=== PATIENT | male | born 1990 | race Hispanic/Latino ===

== ENCOUNTER 2024-11-08 13:35 | Inpatient (IN) | payer SELFPAY ==
[~2024-11-08] VITALS: Ht 162.6 cm; Wt 158.6 kg
[2024-11-08 15:40] LABS: BASOPHILS # (AUTO) 0.07 K/uL (0.00-0.20); BASOPHILS % (AUTO) 0.6 % (0.0-5.0); EOSINOPHILS % (AUTO) 5.4 % (0.0-8.0); HEMATOCRIT 35.8 % (42-54); IMMATURE GRANULOCYTE ABSOLUTE 0.09 K/uL (0-1); LYMPHOCYTES # (AUTO) 2.3 K/uL (1.0-4.8); LYMPHOCYTES % (AUTO) 20.6 % (21.0-51.0); MEAN CORPUSCULAR HGB CONC 31.8 g/dL (32.0-36.0); MEAN CORPUSCULAR VOLUME 81.7 fL (79-99); MONOCYTES # (AUTO) 0.6 K/uL (0.1-1.0); MONOCYTES % (AUTO) 5.2 % (3.0-13.0); NEUTROPHILS # (AUTO) 7.4 K/uL (1.8-7.7); NEUTROPHILS % (AUTO) 67.4 % (40.0-77.0); PLATELET COUNT (AUTO) 357 K/uL (130-400); RED BLOOD CELL COUNT(AUTO) 4.38 MIL/uL (4.50-6.20); RED CELL DISTRIBUTION WIDTH 14.6 % (11.0-15.5)
[2024-11-08 15:57] LABS: CREATININE 1.9 mg/dL (0.5-1.3)
[2024-11-08 16:05] LABS: POTASSIUM 2.9 mmol/L (3.5-5.1)
[2024-11-08] MEDS ORDERED: IOHEXOL 350 MG/ML 100ML INFUS..BTL IV ONE (16:25)
--- NOTE | 2024-11-08 16:50 | HMCIMG ---
Exam Type: CT ABDOMEN/PELVIS W/CONTRAST Clinical Information: r/o incarcerated left inguinal hernia Comparison: None Contrast: 100 cc's Isovue 370 IV, no complications or adverse reactions CT Dose Index (CTDI): 31.60 mGy Dose Length Product (DLP): 1740.80 total mGy-cm Findings: There is a left inguinal hernia containing parts of the sigmoid colon. In addition, it contains 2 fluid collections, measuring 19 x 10 and 14 x 11 cm, possibly peritoneal fluid and a hydrocele. There is also evidence that the inguinal hernia contains the distal portion of the left ureter which appears dilated, with resultant left moderate hydroureteronephrosis. No evidence of right nephro or ureterolithiasis is found. No right hydronephrosis or ureteral dilatation is seen. The lung bases are clear. The stomach is unremarkable. It shows no wall thickening. No gross ulceration is seen. It is not overly distended. There are no surrounding inflammatory changes. No wall lesions are identified to suggest cancer. The spleen is unremarkable. It is not enlarged. The pancreas shows normal anatomy. It is not fatty replaced. It shows no lesions. The pancreatic duct is not dilated. The gallbladder is unremarkable. It shows no cholelithiasis. The gallbladder wall is normal in thickness. There is no pericholecystic fluid. The is no acute or chronic inflammation noted. The adrenal glands are unremarkable. There is no enlargement. No lesions are noted. The liver is unremarkable. It shows no focal masses. The appendix is unremarkable. It shows no evidence of inflammation. No appendicolith is seen. The small bowel is unremarkable. There is no evidence of dilatation to suggest obstruction. No evidence of adynamic ileus is seen. There is no small bowel wall thickening to suggest enteritis. The colon is unremarkable. The urinary bladder is unremarkable. There is no wall thickening to suggest tumor or inflammation. There are no intraluminal calculi. There are no diverticula. There is no evidence of chronic bladder outlet obstruction. There is no evidence of urinary bladder distention to suggest urinary retention. The other pelvic structures are unremarkable. The bony and vascular structures are unremarkable for the patient's age. IMPRESSION: There is a left inguinal hernia containing parts of the sigmoid colon. In addition, it contains 2 fluid collections, measuring 19 x 10 and 14 x 11 cm, possibly peritoneal fluid and a hydrocele. There is also evidence that the inguinal hernia contains the distal portion of the left ureter which appears dilated, with resultant left moderate hydroureteronephrosis. This study was performed using dose reduction techniques to include automated exposure control and/or adjustment of the mA and/or kV according to patient size.
[2024-11-08] MEDS: 0.9%NACL 1000ML 1,000 ML IV ONE (17:43)
[2024-11-08] MEDS: PoTASSium BIcarbonate/CIT AC 25 MEQ TABLET.EFF PO ONE (17:43)
[2024-11-08] MEDS: LAbetaLOL 20MG SYG IV ONE (17:45)
--- NOTE | 2024-11-08 17:53 | ERN ---
General Chief Complaint: Hypertension Stated Complaint: HYPERTENSION Time Seen by MD: 13:44 Time Seen by Midlevel: 13:44 Source: patient History of Present Illness Initial Comments Patient is a morbidly obese 34-year-old male who presents to the emergency department with multiple complaints. Primary concern is that patient was having left groin pain that has progressively worsening over the last couple of weeks. Patient was seen at a local urgent care one month ago where he was diagnosed with a left inguinal hernia. Today he states his pain worsened so he was seen at [facility] but discharged. Patient states that while he was there his blood pressure was elevated over 190 systolic but was still discharged like that. Here he was reporting a significant amount of pain to his left groin along with high blood pressure. Patient has been noncompliant with his high blood pressure medication. Allergies: Coded Allergies: No Known Allergies (Unverified Allergy, Unknown, 11/08/24) Past Medical History Past Medical History: Hypertension Past Surgical History: Other ROS Dictation CONSTITUTIONAL: Negative except for HPI HEAD/FACE: Negative except for HPI EENT: Negative except for HPI RESPIRATORY: Negative except for HPI GASTROINTESTINAL/ABDOMINAL: Negative except for HPI GENITOURINARY: Negative except for HPI MUSCULOSKELETAL: Negative except for HPI INTEGUMENTARY: Negative except for HPI NEUROLOGICAL/PSYCH: Negative except for HPI HEMATOLOGIC/LYMPHATIC: Negative except for HPI All Systems Negative, Except as noted above. 13 point review of systems assessed and all negative except for above. Physical Exam Physical Exam Dictation Vital Signs reviewed General Appearance: Alert, oriented x 3, no acute distress, morbidly obese Head and Face: non-traumatic. Eyes: PERRL, pink conjunctivas, eyelid no trauma, anterior chamber with arcus senilis. Ears: Pinnas intact and no signs of trauma or erythema ear canals clear and no discharge TM no erythema Nose: No discharge, no bleeding. Oropharynx: Mouth normal, tongue pink, pharynx clear,no erythema, tonsils no exudates, no abscesses noted, mucous membrane moist Neck: Supple, non-tender, no thyromegaly, no masses, no JVD, no bruits Breast:Deferred Chest:No tenderness, no crepitus, no paradoxical movement, no retractions Lungs:Clear, well-ventilated, symmetric, no rales, no wheezing, no rhonchi, no stridor, good breath sounds bilaterally Heart: Regular rate, regular rhythm, no murmur, no gallops Vascular: no peripheral edema, Abdomen: Soft, positive bowel sounds, nondistended, no guarding, nontender, no rebound, no masses no hepatomegaly, no splenomegaly, no Dixon's sign, no hernias. Rectal: Deferred Genital: Deferred Neurological: Normal speech, motor function intact, sensory function intact Musculoskeletal: Neck nontender, full range of motion, back nontender, full range of motion, Extremities: nontender, full range of motion Skin: Color pink, dry, no turgor, no rash, no lacerations, no abrasions, no contusions. Lymphatic: Deferred Results Laboratory and Microbiology Lab and Micro Result Labs Reviewed?: Yes MDM MDM: Differential diagnosis: Incarcerated hernia, urinary tract infection, hydrocele, Rationale: Tests considered and ordered secondary to shared decision making include: Previous outside records reviewed: Old ER visits. Risk of complication and/or morbidity or mortality of patient management: None Medications-Per medication reconciliation Need for hospitalization: Patient does meet criteria for hospitalization. Need for emergency major/minor surgery: No There are no social concerns with this patient. Prescription drug management Prescriptions will include symptomatic care Patient's prior external medical records from other ER visits were reviewed by me as indicated. Prior testing and results from previous visits were reviewed. Prior tests were taken into account with medical decision making and resource utilization, independent historian/historians were used to obtain complete medical history. I independently interpreted the test that were performed, results were reviewed by me and considered findings on radiology if ordered. Medical management and examination interpretation discussions were had by me with other qualified healthcare professionals as indicated for the patient's care. ED Course [place] [id number] [place] [id number] IMAGING REPORT Signed PATIENT: SHERIF ANTONIO JR MR#: [id number] : 1990 SEX: M AGE: 34 LOCATION: [facility] ORDER 17 STATUS: [facility] REPORT#: [id number] SERVICE 15 REASON: r/o incarcerated left inguinal hernia ORDERING PHYSICIAN: CONCEPCION GRUBER PROCEDURE: ABD PEL W - CT ABDOMEN/PELVIS W/CONTRAST Exam Type: CT ABDOMEN/PELVIS W/CONTRAST Clinical Information: r/o incarcerated left inguinal hernia Comparison: None Contrast: 100 cc's Isovue 370 IV, no complications or adverse reactions CT Dose Index (CTDI): 31.60 mGy Dose Length Product (DLP): 1740.80 total mGy-cm Findings: There is a left inguinal hernia containing parts of the sigmoid colon. In addition, it contains 2 fluid collections, measuring 19 x 10 and 14 x 11 cm, possibly peritoneal fluid and a hydrocele. There is also evidence that the inguinal hernia contains the distal portion of the left ureter which appears dilated, with resultant left moderate hydroureteronephrosis. No evidence of right nephro or ureterolithiasis is found. No right hydronephrosis or ureteral dilatation is seen. The lung bases are clear. The stomach is unremarkable. It shows no wall thickening. No gross ulceration is seen. It is not overly distended. There are no surrounding inflammatory changes. No wall lesions are identified to suggest cancer. The spleen is unremarkable. It is not enlarged. The pancreas shows normal anatomy. It is not fatty replaced. It shows no lesions. The pancreatic duct is not dilated. The gallbladder is unremarkable. It shows no cholelithiasis. The gallbladder wall is normal in thickness. There is no pericholecystic fluid. The is no acute or chronic inflammation noted. The adrenal glands are unremarkable. There is no enlargement. No lesions are noted. The liver is unremarkable. It shows no focal masses. The appendix is unremarkable. It shows no evidence of inflammation. No appendicolith is seen. The small bowel is unremarkable. There is no evidence of dilatation to suggest obstruction. No evidence of adynamic ileus is seen. There is no small bowel wall thickening to suggest enteritis. The colon is unremarkable. The urinary bladder is unremarkable. There is no wall thickening to suggest tumor or inflammation. There are no intraluminal calculi. There are no diverticula. There is no evidence of chronic bladder outlet obstruction. There is no evidence of urinary bladder distention to suggest urinary retention. The other pelvic structures are unremarkable. The bony and vascular structures are unremarkable for the patient's age. IMPRESSION: There is a left inguinal hernia containing parts of the sigmoid colon. In addition, it contains 2 fluid collections, measuring 19 x 10 and 14 x 11 cm, possibly peritoneal fluid and a hydrocele. There is also evidence that the inguinal hernia contains the distal portion of the left ureter which appears dilated, with resultant left moderate hydroureteronephrosis. This study was performed using dose reduction techniques to include automated exposure control and/or adjustment of the mA and/or kV according to patient size. DICTATED BY: ISAIAS BRUNER MD DATE: 11/08/24 1646 ELECTRONICALLY SIGNED BY: ISAIAS BRUNER MD DATE: 11/08/24 165 Case discussed with general surgery Dr. Nielsen who agrees to be put on consult for this case. DX & DISP Disposition: Inpatient Decision to Admit Date: Nov 08, 2024 Departure Impression: Primary Impression: Left inguinal hernia Additional Impressions: KARY (acute kidney injury), Hypokalemia, Hydroureteronephrosis Condition: Stable Referrals: SVITLANA PICHARDO MD (PCP) Time of Disposition: 18:11 I have reviewed the case, and I agree with, Diagnosis and Plan I performed the substantive portion of the visit. I have reviewed and personally made and approve the management plan that is documented in the note by myself or the JEIMY. I acknowledge for responsibility for the patient's ma nagement plan. CONCEPCION GRUBER Nov 08, 2024 17:53 DESEAN JACOBS DO Nov 09, 2024 07:15
[2024-11-08 17:58] LABS: APPEARANCE,URINE CLEAR (CLEAR); BILIRUBIN,URINE NEGATIVE (NEGATIVE); COLOR,URINE YELLOW (YELLOW); GLUCOSE, URINE (UA) NEGATIVE (NEGATIVE); KETONES,URINE NEGATIVE (NEGATIVE); LEUKOCYTE ESTERASE ,URINE NEGATIVE Leu/uL (NEGATIVE); NITRATE,URINE NEGATIVE (NEGATIVE); OCCULT BLOOD,URINE LARGE (NEGATIVE); PH,URINE 6.5 (5.0-8.0); PROTEIN,URINE 300 mg/dL (NEGATIVE); UROBILINOGEN,URINE 0.2 mg/dL (0.2-1.0)
[2024-11-08 18:00] LABS: ADD UA MICROSCOPIC YES
[2024-11-08 18:25] LABS: BACTERIA,URINE RARE /HPF (None Seen); MUCUS,URINE RARE LPF (None Seen); RBC,URINE 26-50 /HPF (0-1); SQUAMOUS EPITHELIAL CELL,UR RARE /HPF (0-2)
--- NOTE | 2024-11-08 18:25 | HP ---
History of Present Illness Reason for Visit: abdominal pain History of Present Illness Mr. Lazo is a 34-year-old male that was seen and examined today on 11/08/2024. Patient is a good historian and personal health. Patient states that he came to the emergency department with a chief complaint of abdominal pain. Onset was 4:00 a.m.. Location is to left lower quadrant. Duration is on and off. Character is described as burning. There was no alleviating factors. Symptoms are aggravated with movement. Patient reports an associated hernia that he has had for the last one year. Today in the emergency department CBC is unremarkable, potassium is 2.9, carbon dioxide 34, BUN 19, creatinine 1.9, GFR 47, urinalysis is unremarkable CT abdomen and pelvis shows There is a left inguinal hernia containing parts of the sigmoid colon. in addition, it contains 2 fluid collections, measuring 19 x 10 and 14 x 11 cm, possibly peritoneal fluid and a hydrocele. There is also evidence that the inguinal hernia contains the distal portion of the left ureter which appears dilated, with resultant left moderate hydroureteronephrosis. Past Medical History ADDITIONAL PAST MEDICAL HISTORY: [Hypertension, obstructive sleep apnea] SOCIAL HISTORY: Negative for smoking, alcohol use, drug use. Patient lives with a sister faustino gordon. Patient has poor access to health care due to lack of health insurance. Patient is currently unemployed. Patient denies difficulty pain is bills. Patient is typically independent of all his ADLs.] SURGICAL HISTORY: [No surgery, right ankle surgery] Review of Systems General: No Fever, No Chills, No Night Sweats, No Fatigue, No Malaise, No Appetite, No Other HEENT: No Head Aches, No Visual Changes, No Eye Pain, No Ear Pain, No Dysphasia, No Sinus Congestion, No Post Nasal Drip, No Sore Throat, No Other Pulmonary: No Dyspnea, No Cough, No Pleuritic Chest Pain, No Other Cardiovascular: No: Chest Pain, Palpitations, Orthopnea, Paroxysmal Noc. Dyspnea, Edema, Lt Headedness, Other Gastrointestinal: Abdominal Pain; No: Nausea, Vomiting, Diarrhea, Constipation, Melena, Hematochezia, Other Genitourinary: No Dysuria, No Frequency, No Incontinence, No Hematuria, No Retention, No Other Musculoskeletal: No: other, neck pain, shoulder pain, arm pain, back pain, hand pain, leg pain, foot pain Skin: No Urticaria, No Rash, No Other Neurological: No: Weakness, Numbness, Incoordination, Change in speech, Confusion, Seizures, Other Allergies: Coded Allergies: No Known Allergies (Unverified Allergy, Unknown, 11/08/24) Exam Vital Signs Vital Signs Date Time Temp Pulse Resp B/P (MAP) Pulse Ox O2 Delivery O2 Flow Rate FiO2 11/08/24 17:45 220/115 11/08/24 14:05 98.1 93 20 99 Room Air General Appearance: Alert, Oriented X3, Cooperative, mild distress HEENT: Atraumatic, PERRLA, EOMI Respiratory: Clear to auscultation, Normal air movement, NL respiratory effort Cardiovascular: Regular rate, Regular rhythm, Normal S1, Normal S2 Abdominal: Normal bowel sounds, Soft, No tenderness, Other (Protruding hernia left inguinal area) Extremities: No edema Skin: No significant lesion Neuro: Normal speech, Strength at 5/5 X4 ext, Sensation intact, Cranial nerves 3-12 NL Psych/Mental Status: Mental status NL, Thoughts/Content NL Assessment/Plan ASSESSMENT: [] Left inguinal hernia causing hydroureteronephrosis, POA Acute kidney injury, POA Hypokalemia, POA PLAN: [ ] Admit patient to medical floor as inpatient status. Patient will be followed by General surgery Service, Dr. Nielsen IV fluid maintenance therapy lactated Ringer's at 75 mL/HR Keep patient NPO Check preprocedure labs, CBC, BMP, magnesium, phosphorus, PTT, UA, type and screen, EKG, CXR As needed analgesia with morphine Consider consulting Urology Service if recommended by General surgery Service Calculate FENA Check urine sodium, creatinine, osmolality Avoid nephrotoxic agents when possible Renally dose all medications when possible Consider consulting urology service if any worsening renal function or evidence of ATN. Monitor patient's labs. Weight patient daily. Monitor intake and output. Patient received potassium replacement 25 mEq in the emergency department. Replace potassium conservatively given current acute kidney injury. GI prophylaxis, Protonix DVT prophylaxis, Artemio's and SCDs. Avoid anticoagulation at this time due to impending general surgery evaluation. ADVANCED CARE PLANNING 1. Which of the following were discussed? Hospice Care - Yes Therapeutic options - Yes Advance Directives - Yes- patient states he does not have any advance directives in place at this time, however his sister can make decisions for him if he becomes unable. Other discussions - patient wishes to remain a full code at this time 2. Discussed with who? Patient 3. Voluntary nature of this service was explained to the patient? Yes 4. Amount of time spent - __ 16 minutes 5. Reviewed by Physician? (if this service was performed by NPP) Yes This document was generated in part using voice recognition software, occasional wrong word or sound alike substitutions may have occurred due to the inherent limitations of voice recognition software. Read the chart carefully and recognize using context, where the substitutions have occurred. Although every effort was made to edit the content, aircraft log clerk and typing errors may occur ATTESTATION BY PHYSICIAN I have seen and examined the patient. I reviewed the documentation, medical decision making, and treatment plan as noted by the mid-level provider above. I agree with the findings and plan of care. SELAM ALTAMIRANO [facility] Nov 08, 2024 18:25
[2024-11-08] MEDS ORDERED: ondanSETRON 4MG INJ IV PRN (18:30)
[2024-11-08] MEDS ORDERED: acetaMINOPHEN 650 MG SUPPOSITORY RC PRN (18:30)
[2024-11-08] MEDS ORDERED: morPHINE 4 MG SYG IVP PRN (18:30)
[2024-11-08] MEDS: LACTATED RINGERS 1000ML 1,000 ML IV SCH (21:16)
[2024-11-08 21:28] LABS: CREATININE,URINE RANDOM 251.26 mg/dL (30-135)
--- NOTE | 2024-11-08 21:30 | HMCIMG ---
Exam Type: CHEST 1VW Clinical Information: pre procedural Comparison: None Findings: The lungs are clear. The heart is normal in size. There is tortuosity of the aorta which artifactually enlarges the mediastinum. No actual mediastinal pathology is detected. IMPRESSION: Tortuous aorta. Clear lungs.
--- NOTE | 2024-11-08 22:16 | NUR ---
ASSUMED PT CARE
--- NOTE | 2024-11-08 23:00 | NUR ---
HOLD TRANSFER BP 190 SYSTOLIC
[2024-11-09] MEDS: hydrALAZine 20MG/ML VIAL IV PRN (00:09)
--- NOTE | 2024-11-09 00:16 | NUR ---
PT NOT ON ANY HOME MEDS
--- NOTE | 2024-11-09 01:04 | NUR ---
FINANCE ADVISOR SELAM ALTAMIRANO NOTIFIED OF BLOOD PRESSURE PRIOR TO PATIENT GOING TO FLOOR; ORDERS RECIEVED AND TRANSCRIBED.
[2024-11-09] MEDS: NITROGLYCERIN 1GM OINT 1 INCH/1GM TD ONE ×2 (01:08→01:14)
--- NOTE | 2024-11-09 01:25 | NUR ---
FLOOR NURSES NOT HAPPY TO RECEIEVE PT WITH BP OF 179 SYSTOLIC, PAGED SELAM VILLEGAS, AWAITS CALL BACK
--- NOTE | 2024-11-09 01:39 | NUR ---
REPEATED BP 156/116 CALLED FLR NURSE TIM, STILL NOT HAPPY TO TAKE THE PT WITH HIGH MAPS, INFORMED SELAM VILLEGAS ABOUT RECENT BP - AWARE, 'NOTHING TO DO ON HIS END LONG PT BP IS BELOW 160 SYSTOLIC'
--- NOTE | 2024-11-09 07:02 | EKG ---
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
[2024-11-09 07:28] LABS: BASOPHILS # (AUTO) 0.04 K/uL (0.00-0.20); BASOPHILS % (AUTO) 0.4 % (0.0-5.0); EOSINOPHILS # (AUTO) 0.39 K/uL (0.00-0.70); EOSINOPHILS % (AUTO) 4.2 % (0.0-8.0); HEMATOCRIT 33.3 % (42-54); IMMATURE GRANULOCYTE ABSOLUTE 0.07 K/uL (0-1); LYMPHOCYTES # (AUTO) 1.6 K/uL (1.0-4.8); LYMPHOCYTES % (AUTO) 17.1 % (21.0-51.0); MEAN CORPUSCULAR HEMOGLOBIN 25.4 pg (27.0-33.0); MEAN CORPUSCULAR HGB CONC 31.2 g/dL (32.0-36.0); MEAN CORPUSCULAR VOLUME 81.2 fL (79-99); MONOCYTES # (AUTO) 0.5 K/uL (0.1-1.0); MONOCYTES % (AUTO) 5.4 % (3.0-13.0); NEUTROPHILS # (AUTO) 6.7 K/uL (1.8-7.7); NEUTROPHILS % (AUTO) 72.2 % (40.0-77.0); PLATELET COUNT (AUTO) 342 K/uL (130-400); RED CELL DISTRIBUTION WIDTH 14.9 % (11.0-15.5); WHITE BLOOD COUNT (AUTO) 9.3 K/uL (4.8-10.8)
[2024-11-09 07:36] LABS: INR 1.05 (0.85-1.15); PROTHROMBIN TIME 11.7 SEC (9.6-11.6)
[2024-11-09 07:37] LABS: PARTIAL THROMBOPLASTIN TIME 31.9 SEC (26.3-35.5)
[2024-11-09 07:41] LABS: CREATININE 1.6 mg/dL (0.5-1.3); MAGNESIUM 1.9 mg/dL (1.80-2.40)
--- NOTE | 2024-11-09 07:46 | NUR ---
PROVIDER PAGED. PATIENT BP ELEVATED (SEE VITALS SHEET).
[2024-11-09 07:58] LABS: POTASSIUM 2.9 mmol/L (3.5-5.1)
[2024-11-09] MEDS: PANTOPrazole 40 MG/VIAL IVP SCH (08:26)
[2024-11-09] MEDS: PoTASSium chloRIDE 20MEQ/100ML 100 ML IV PRN (08:27)
[2024-11-09] MEDS ORDERED: NACL 0.9% IV SCH (08:30)
[2024-11-09] MEDS ORDERED: LABETALOL IV SCH (08:30)
[2024-11-09] MEDS: LAbetaLOL 20MG SYG IV ONE (08:53)
--- NOTE | 2024-11-09 10:40 | NUR ---
DCP: HOME with sister Pt unemployed, lost insurance. Lives in [facility] with sister [place] [address] [address]. Pt states he is able to complete ADLS on his own. Uses no DME or in home care services. No HH or HD. PCP is Bridget Tineo and uses Dariela in [place] for rx. Family transports as needed. Community resources given. Pt to dc home with sister. Addendum: 11/09/24 at 1043 by LIBERTAD ARNOLD SS Amended: Links added.
--- NOTE | 2024-11-09 11:17 | NUR ---
ATTEMPT TO CALL REPORT X2
[2024-11-09 11:35] VITALS: BP 179/91; PULSE 98; RESP 19; TEMP 97.8
[2024-11-09 11:45] VITALS: O2SAT 95
--- NOTE | 2024-11-09 13:08 | PN ---
[facility] PROGRESS NOTE Date of Service: Nov 09, 2024 Time of Service: 13:08 SUBJECTIVE: Mr. Lazo is a 34-year-old male that was seen and examined today on 11/08/2024. Patient is a good historian and personal health. Patient states that he came to the emergency department with a chief complaint of abdominal pain. Onset was 4:00 a.m.. Location is to left lower quadrant. Duration is on and off. Character is described as burning. There was no alleviating factors. Symptoms are aggravated with movement. Patient reports an associated hernia that he has had for the last one year. Today in the emergency department CBC is unremarkable, potassium is 2.9, carbon dioxide 34, BUN 19, creatinine 1.9, GFR 47, urinalysis is unremarkable CT abdomen and pelvis shows There is a left inguinal hernia containing parts of the sigmoid colon. in addition, it contains 2 fluid collections, measuring 19 x 10 and 14 x 11 cm, possibly peritoneal fluid and a hydrocele. There is also evidence that the inguinal hernia contains the distal portion of the left ureter which appears dilated, with resultant left moderate hydroureteronephrosis. 11/09/24 Patient was seen and examined at bedside. He is awake, alert and oriented. He complains of generalized left lower abdominal pain, denies nausea or vomitings or diarrhea or chest pain or shortness of breath or palpitations. Patient has been hypertensive in 170s to 200 , and gave him labetalol and hydralazine. We will start hydralazine 10 mg q.6 and if blood pressure does not go down we will start him on Norvasc5 mg. We will get a ultrasound to rule out renal artery stenosis and 2D echo. He has history of hypertension but was never on medication. Pending Dr. Nielsen recommendations, patient is currently NPO. REVIEW OF SYSTEMS CONSTITUTIONAL: Denies fevers, chills, or night sweats. No unintentional weight loss reported. NEUROLOGICAL: Denies headache, amaurosis fugax, motor weakness, sensory deficit, vertigo/spinning sensation, gait abnormalities, or tremors. ENT: No hearing loss, otalgia, otorrhea, rhinitis, rhinorrhea, hoarseness, or sore throat. CARDIOVASCULAR: Denies any exertional angina, dyspnea on exertion, orthopnea, paroxysmal nocturnal dyspnea, palpitations, life-threatening arrhythmias, claudication. PULMONARY: Denies any shortness of breath, cough, phlegm/sputum, hemoptysis, pleuritic chest pain. SLEEP: Denies morning headaches, daytime somnolence or napping. Denies difficulty falling asleep, staying asleep, waking from sleep. Denies knowledge of snoring. GASTROINTESTINAL: Denies any type of dysphagia to either liquids or solids. Denies nausea, vomiting, pyrosis, early satiety, abdominal pain, diarrhea, constipation, or changes in stool consistency or caliber. Denies coffee-ground emesis, hematemesis, hematochezia, or melanotic stools. GENITOURINARY: Denies frequency, urgency, nocturia, hematuria or incontinence (Storage/Irritative symptoms.) Low urinary stream, straining to void, urinary intermittency or hesitancy, splitting of the voiding stream, terminal dribbling. ENDOCRINOLOGIC: Denies polyuria, polydipsia, polyphagia or heat/cold intolerances. HEMATOLOGIC: Denies thrombophilia/previous clots, or coagulopathy/bleeding disorders. ONCOLOGIC: Denies personal history of malignancy. DERMATOLOGIC: Denies rashes or pruritus. PSYCHIATRIC: Denies any suicidal or homicidal ideation. Denies hallucinations. PHYSICAL EXAM GENERAL APPEARANCE: The patient is awake, alert, and oriented, in no acute cardiopulmonary distress. NEUROLOGICAL: Cranial nerves II-XII grossly intact. Motor is 5/5 in bilateral upper and lower extremities proximal to distal. No sensory deficits. HEENT: Face is symmetric. Pupils are equal and reactive. Extraocular movements are intact. NECK: Supple. No JVD. No thyromegaly. No submental, submandibular, pre- /postauricular, occipital or supraclavicular lymphadenopathy. CHEST: Normal chest expansion. No Telemetry. LUNGS: Absence of any rales, rhonchi or any wheezing. CARDIOVASCULAR: Regular. S1 and S2 normal. No appreciable rubs, murmurs or gallops. ABDOMEN: Soft, nontender, and nondistended. There is no rebound, voluntary guarding, or rigidity. : Deferred. No Munoz. EXTREMITIES: Non-edematous and not cyanotic. No clubbing. Good capillary refill. SKIN: No skin breakdown. Vital Signs (last 8hr) Date Time Temp Pulse Resp B/P (MAP) Pulse Ox O2 Delivery O2 Flow Rate FiO2 11/09/24 11:45 95 Room Air* 0 11/09/24 10:30 83 18 169/111 99 Room Air* 0 11/09/24 09:30 99 18 162/102 99 Room Air* 0 21 11/09/24 09:00 99 18 176/103 99 Room Air* 0 11/09/24 08:53 200/120 11/09/24 07:47 104 18 200/120 99 Room Air* 0 11/09/24 06:46 98.4 70 18 154/87 96 Room Air* 0 11/09/24 06:39 98.4 77 18 196/115 100 Room Air* 0 21 LABS: Laboratory: Test 11/09/24 07:08 11/09/24 07:00 11/08/24 17:00 11/08/24 15:00 Range/Units Prothrombin Time 11.7 H 9.6-11.6 SEC Prothromb Time International Ratio 1.05 0.85-1.15 Activated Partial Thromboplast Time 31.9 26.3-35.5 SEC White Blood Count 9.3 4.8-10.8 K/uL Red Blood Count 4.10 L 4.50-6.20 MIL/uL Hemoglobin 10.4 L 14.0-18.0 g/dL Hematocrit 33.3 L 42-54 % Mean Corpuscular Volume 81.2 79-99 fL Mean Corpuscular Hemoglobin 25.4 L 27.0-33.0 pg Mean Corpuscular Hemoglobin Concent 31.2 L 32.0-36.0 g/dL Red Cell Distribution Width 14.9 11.0-15.5 % Platelet Count 342 130-400 K/uL Mean Platelet Volume 9.7 7.5-10.5 fL Immature Granulocyte % (Auto) 0.7 0-1 % Neutrophils (%) (Auto) 72.2 40.0-77.0 % Lymphocytes (%) (Auto) 17.1 L 21.0-51.0 % Monocytes (%) (Auto) 5.4 3.0-13.0 % Eosinophils (%) (Auto) 4.2 0.0-8.0 % Basophils (%) (Auto) 0.4 0.0-5.0 % Neutrophils # (Auto) 6.7 1.8-7.7 K/uL Lymphocytes # (Auto) 1.6 1.0-4.8 K/uL Monocytes # (Auto) 0.5 0.1-1.0 K/uL Eosinophils # (Auto) 0.39 0.00-0.70 K/uL Basophils # (Auto) 0.04 0.00-0.20 K/uL Absolute Immature Granulocyte (auto 0.07 0-1 K/uL Nucleated Red Blood Cells 0.0 0.0-0.19 % Sodium Level 147 H 136-145 mmol/L Potassium Level 2.9 *L 3.5-5.1 mmol/L Chloride Level 106 101-111 mmol/L Carbon Dioxide Level 31 21-32 mmol/L Blood Urea Nitrogen 16 7-18 mg/dL Creatinine 1.6 H 0.5-1.3 mg/dL Glomerular Filtration Rate Calc 58 >90 mL/min Random Glucose 120 H 70-105 mg/dL Total Calcium 8.9 8.5-10.1 mg/dL Phosphorus Level 4.0 2.5-4.9 mg/dL Magnesium Level 1.90 1.80-2.40 mg/dL Urine Color YELLOW YELLOW Urine Appearance CLEAR CLEAR Urine pH 6.5 5.0-8.0 Urine Specific [place] 1.035 H 1.001-1.031 Urine Protein 300 H NEGATIVE mg/dL Urine Glucose (UA) NEGATIVE NEGATIVE mg/dL Urine Ketones NEGATIVE NEGATIVE mg/dL Urine Occult Blood LARGE H NEGATIVE Urine Nitrate NEGATIVE NEGATIVE Urine Bilirubin NEGATIVE NEGATIVE mg/dL Urine Urobilinogen 0.2 0.2-1.0 mg/dL Urine Leukocyte Esterase NEGATIVE NEGATIVE Andrey/uL Urine RBC 26-50 H 0-1 /HPF Urine WBC 11-25 H 0-1 /HPF Urine Squamous Epithelial Cells RARE 0-2 /HPF Urine Bacteria RARE None Seen /HPF Urine Hyaline Casts 2-5 H 0-1 /LPF /LPF Urine Random Creatinine 251.26 H 30-135 mg/dL Urine Random Sodium 33 L 40-220 mmol/l Total Creatine Kinase 123 21-232 U/L Troponin I High Sensitivity 32 4-75 ng/L Current Medications Medications (Trade) Dose Ordered Sig/Angie Route PRN Reason Start Time Stop Time Status Last Admin Dose Admin Acetaminophen (TYLenol 650MG SUPPOSITORY) 650 mg Q6H PRN RC MILD PAIN (1-3) 11/08/24 18:30 12/08/24 18:29 Hydralazine HCl (APRESOLine 20MG INJ) 10 mg Q6H PRN IV For:SBP above 160;DBP above 90 11/08/24 18:30 12/08/24 18:29 11/09/24 06:46 10 MG Labetalol HCl 250 mg/Sodium Chloride 250 ml @ 0 mls/hr PROTOCOL IV 11/09/24 08:30 11/09/24 08:45 DC Lactated Ringer's 1,000 ml @ 75 mls/hr [id number] IV 11/08/24 18:30 12/08/24 18:29 11/09/24 08:26 75 MLS/HR Morphine Sulfate (morPHINE 4MG SYG) 4 mg Q4H PRN IVP SEVERE PAIN (7-10) 11/08/24 18:30 11/15/24 18:29 Ondansetron HCl (zoFRAN 4MG INJ) 4 mg Q6H PRN IV NAUSEA/VOMITING 11/08/24 18:30 12/08/24 18:29 Pantoprazole Sodium (PROTonix 40MG INJ) 40 mg DAILY IVP 11/09/24 09:00 12/09/24 08:59 11/09/24 08:26 40 MG Potassium Chloride 100 ml @ 50 mls/hr AD PRN IV POTASSIUM PROTOCOL 11/09/24 08:30 12/09/24 08:29 11/09/24 08:27 50 MLS/HR DIAGNOSTICS / RADIOLOGY: PATIENT: SHERIF LAZO JR MR#: [id number] : 1990 SEX: M AGE: 34 LOCATION: [facility] ORDER 21 STATUS: ADM IN REPORT#: [id number] SERVICE 20 REASON: pre procedural ORDERING PHYSICIAN: SELAM ALTAMIRANO PROCEDURE: CXR1VW - CHEST 1VW Exam Type: CHEST 1VW Clinical Information: pre procedural Comparison: None Findings: The lungs are clear. The heart is normal in size. There is tortuosity of the aorta which artifactually enlarges the mediastinum. No actual mediastinal pathology is detected. IMPRESSION: Tortuous aorta. Clear lungs. REASON: r/o incarcerated left inguinal hernia ORDERING PHYSICIAN: CONCEPCION GRUBER PROCEDURE: ABD PEL W - CT ABDOMEN/PELVIS W/CONTRAST Exam Type: CT ABDOMEN/PELVIS W/CONTRAST Clinical Information: r/o incarcerated left inguinal hernia Comparison: None Contrast: 100 cc's Isovue 370 IV, no complications or adverse reactions CT Dose Index (CTDI): 31.60 mGy Dose Length Product (DLP): 1740.80 total mGy-cm Findings: There is a left inguinal hernia containing parts of the sigmoid colon. In addition, it contains 2 fluid collections, measuring 19 x 10 and 14 x 11 cm, possibly peritoneal fluid and a hydrocele. There is also evidence that the inguinal hernia contains the distal portion of the left ureter which appears dilated, with resultant left moderate hydroureteronephrosis. No evidence of right nephro or ureterolithiasis is found. No right hydronephrosis or ureteral dilatation is seen. The lung bases are clear. The stomach is unremarkable. It shows no wall thickening. No gross ulceration is seen. It is not overly distended. There are no surrounding inflammatory changes. No wall lesions are identified to suggest cancer. The spleen is unremarkable. It is not enlarged. The pancreas shows normal anatomy. It is not fatty replaced. It shows no lesions. The pancreatic duct is not dilated. The gallbladder is unremarkable. It shows no cholelithiasis. The gallbladder wall is normal in thickness. There is no pericholecystic fluid. The is no acute or chronic inflammation noted. The adrenal glands are unremarkable. There is no enlargement. No lesions are noted. The liver is unremarkable. It shows no focal masses. The appendix is unremarkable. It shows no evidence of inflammation. No appendicolith is seen. The small bowel is unremarkable. There is no evidence of dilatation to suggest obstruction. No evidence of adynamic ileus is seen. There is no small bowel wall thickening to suggest enteritis. The colon is unremarkable. The urinary bladder is unremarkable. There is no wall thickening to suggest tumor or inflammation. There are no intraluminal calculi. There are no diverticula. There is no evidence of chronic bladder outlet obstruction. There is no evidence of urinary bladder distention to suggest urinary retention. The other pelvic structures are unremarkable. The bony and vascular structures are unremarkable for the patient's age. IMPRESSION: There is a left inguinal hernia containing parts of the sigmoid colon. In addition, it contains 2 fluid collections, measuring 19 x 10 and 14 x 11 cm, possibly peritoneal fluid and a hydrocele. There is also evidence that the inguinal hernia contains the distal portion of the left ureter which appears dilated, with resultant left moderate hydroureteronephrosis. This study was performed using dose reduction techniques to include automated exposure control and/or adjustment of the mA and/or kV according to patient size. ASSESSMENT: Left inguinal hernia causing hydroureteronephrosis, POA Acute kidney injury, POA Hypokalemia, POA PLAN: Patient will be followed by General surgery Service, Dr. Nielsen IV fluid maintenance therapy lactated Ringer's at 75 mL/HR Keep patient NPO Check preprocedure labs, CBC, BMP, magnesium, phosphorus, PTT, UA, type and screen, EKG, CXR As needed analgesia with morphine Consider consulting Urology Service if recommended by General surgery Service Calculate FENA Check urine sodium, creatinine, osmolality Avoid nephrotoxic agents when possible Renally dose all medications when possible Consider consulting Nephrology service if any worsening renal function or evidence of ATN. Monitor patient's labs. Weight patient daily. Monitor intake and output. Patient received potassium replacement 25 mEq in the emergency department. Replace potassium conservatively given current acute kidney injury. GI prophylaxis, Protonix DVT prophylaxis, Artemio's and SCDs. Avoid anticoagulation at this time due to impending general surgery evaluation. ATTESTATION BY PHYSICIAN I have seen and examined the patient. I reviewed the documentation, medical decision making, and treatment plan as noted by the resident provider above. I agree with the findings and plan of care. Nikolas Webb MD, NIHITHA MD Nov 09, 2024 13:08
--- NOTE | 2024-11-09 14:29 | HMCIMG ---
Exam Type: US RENAL SONOGRAM Clinical Information: HYPERTENSIVE URGENCY Comparison: None Findings: There is moderate to severe hydronephrosis of the left kidney. There is also evidence of hydroureter. Right kidney measures 14.4 x 5.7 cm. The left kidney measures 13.7 x 5.3 cm. There is a right renal upper interpolar simple cyst measuring 2.3 cm. The kidneys are otherwise unremarkable. IMPRESSION: Left-sided hydronephrosis.
[2024-11-09 16:00] VITALS: BP 166/103; PULSE 94; RESP 19; TEMP 98.3
--- NOTE | 2024-11-09 16:49 | CONS ---
CONSULT NOTE: Consulting physician:Dr Moyer Consulting service: Reason for consultation: Large left inguinal hernia History of present illness: This is a 34-year-old male with a medical history of known left inguinal hernia for the last year he has been consulted to surgery after presenting to the hospital for a 2nd evaluation. Patient has presented multiple times to [facility] where he has been told that surgical intervention was not emergent due to his lack of obstruction. Patient then presenting to ED clinic where he was told that concerns of potential ureter within hernia patient presented to [facility] for further evaluation. Patient with no signs of obstruction at this time. Patient is passing gas. Last bowel movement yesterday. Imaging performed concerning for a left inguinal hernia containing part of the sigmoid colon with significant fluid concerning for hydrocele and also evidence of distal portion of left ureter within hernia itself. WBCs initially elevated but now 9.3. Hemoglobin stable potassium 2.9 need to be covered. Creatinine elevated to 1.6. Patient currently NPO Medical history: Known left inguinal hernia for the last year Surgical history: Review of systems: General: No Fever, No Chills, No Night Sweats, No Fatigue, No Malaise, No Appetite, No Other HEENT: No Head Aches, No Visual Changes, No Eye Pain, No Ear Pain, No Dysphasia, No Sinus Congestion, No Post Nasal Drip, No Sore Throat, No Other Pulmonary: No Dyspnea, No Cough, No Pleuritic Chest Pain, No Other Cardiovascular: No: Chest Pain, Palpitations, Orthopnea, Paroxysmal No Dyspnea, Edema, Lt Headedness, Other Gastrointestinal: No: Nausea, Vomiting, Diarrhea, Constipation, Melena, Hematochezia, Other Genitourinary: No Dysuria, No Frequency, No Incontinence, No Hematuria, No Retention, No Other Musculoskeletal: No: other, neck pain, shoulder pain, arm pain, back pain, hand pain, leg pain, foot pain Skin: No Urticaria, No Rash, No Other Neurological: No: Weakness, Numbness, Incoordination, Change in speech, Confusion, Seizures, Other Physical exam: General: Awake alert and oriented Heart: Regular rate and rhythm} Lungs: [Clear to auscultation no distress Abdomen: Large left inguinal hernia noted with content with in the scrotum. No significant tenderness Assessment: This is a 34-year-old male with left inguinal hernia with multiple complex structures with no signs of obstruction at this time Plan: Recommendation is for Urology to be consulted for assistance and evaluation of ureter component within hernia Patient to be allowed full liquid diet as he is not obstructed Dr. Nielsen to be updated in patient's status and surgical team will follow patient closely Plan will be for initial conservative management Diet and to be advanced Surgical team to be updated with any further acute events. Thank you for consultation CECILIA HARRIS Jr. Nov 09, 2024 16:49
[2024-11-09] MEDS: hydrALAZine 20MG/ML VIAL IV SCH (17:24)
[2024-11-09 20:00] VITALS: BP 172/95; PULSE 96; RESP 16; TEMP 97.2
[2024-11-09 20:16] VITALS: O2SAT 96
[2024-11-10] VITALS: BP 157/92; PULSE 100; RESP 22; TEMP 98.2
[2024-11-10 04:00] VITALS: BP 156/104; PULSE 75; RESP 22; TEMP 98.3
[2024-11-10 06:41] LABS: BASOPHILS # (AUTO) 0.06 K/uL (0.00-0.20); BASOPHILS % (AUTO) 0.6 % (0.0-5.0); EOSINOPHILS # (AUTO) 0.34 K/uL (0.00-0.70); EOSINOPHILS % (AUTO) 3.6 % (0.0-8.0); HEMATOCRIT 33.6 % (42-54); IMMATURE GRANULOCYTE ABSOLUTE 0.12 K/uL (0-1); LYMPHOCYTES # (AUTO) 1.8 K/uL (1.0-4.8); LYMPHOCYTES % (AUTO) 18.5 % (21.0-51.0); MEAN CORPUSCULAR HEMOGLOBIN 25.8 pg (27.0-33.0); MEAN CORPUSCULAR HGB CONC 31.3 g/dL (32.0-36.0); MEAN CORPUSCULAR VOLUME 82.6 fL (79-99); MONOCYTES # (AUTO) 0.5 K/uL (0.1-1.0); MONOCYTES % (AUTO) 5.3 % (3.0-13.0); NEUTROPHILS # (AUTO) 6.7 K/uL (1.8-7.7); NEUTROPHILS % (AUTO) 70.7 % (40.0-77.0); PLATELET COUNT (AUTO) 336 K/uL (130-400); RED BLOOD CELL COUNT(AUTO) 4.07 MIL/uL (4.50-6.20); RED CELL DISTRIBUTION WIDTH 15.2 % (11.0-15.5); WHITE BLOOD COUNT (AUTO) 9.5 K/uL (4.8-10.8)
[2024-11-10 06:55] LABS: CREATININE 1.5 mg/dL (0.5-1.3)
[2024-11-10 07:00] LABS: POTASSIUM 2.9 mmol/L (3.5-5.1)
[2024-11-10 08:00] VITALS: BP 155/97; PULSE 91; RESP 22; TEMP 97.7; O2SAT 96
--- NOTE | 2024-11-10 09:28 | PN ---
[facility] PROGRESS NOTE Date of Service: Nov 10, 2024 Time of Service: 09:28 SUBJECTIVE: Mr. Lazo is a 34-year-old male that was seen and examined today on 11/08/2024. Patient is a good historian and personal health. Patient states that he came to the emergency department with a chief complaint of abdominal pain. Onset was 4:00 a.m.. Location is to left lower quadrant. Duration is on and off. Character is described as burning. There was no alleviating factors. Symptoms are aggravated with movement. Patient reports an associated hernia that he has had for the last one year. Today in the emergency department CBC is unremarkable, potassium is 2.9, carbon dioxide 34, BUN 19, creatinine 1.9, GFR 47, urinalysis is unremarkable CT abdomen and pelvis shows There is a left inguinal hernia containing parts of the sigmoid colon. in addition, it contains 2 fluid collections, measuring 19 x 10 and 14 x 11 cm, possibly peritoneal fluid and a hydrocele. There is also evidence that the inguinal hernia contains the distal portion of the left ureter which appears dilated, with resultant left moderate hydroureteronephrosis. 11/09/24 Patient was seen and examined at bedside. He is awake, alert and oriented. He complains of generalized left lower abdominal pain, denies nausea or vomitings or diarrhea or chest pain or shortness of breath or palpitations. Patient has been hypertensive in 170s to 200 , and gave him labetalol and hydralazine. We will start hydralazine 10 mg q.6 and if blood pressure does not go down we will start him on Norvasc5 mg. We will get a ultrasound to rule out renal artery stenosis and 2D echo. He has history of hypertension but was never on medication. Pending Dr. Nielsen recommendations, patient is currently NPO. 11/10/24 Patient was seen and examined at bedside. He is awake, alert and oriented. No acute events overnight. Today his vitals are blood pressure 155/97, pulse rate 91, respiratory rate 22, SpO2 95% on room air, T-max 97.7. Patient says his abdominal pain is improving, denies shortness of breath or palpitations or dizziness or nausea or vomitings. As per surgeon's note patient is allowed full light liquid diet as he is not obstructed and plan will be for initial conservative management, diet to be advanced slowly. Urology to be consulted for assistance in evaluation of ureter component within the hernia. Ultrasound renal sonogram showed left-sided hydronephrosis . 2D echo was done today, pending results. His blood pressure is improving with Norvasc and hydralazine. Potassium is 2.9, to be repleted with PO potassium along with the protocol. His WBCs coming down from 11.0 to 9.5 REVIEW OF SYSTEMS CONSTITUTIONAL: Denies fevers, chills, or night sweats. No unintentional weight loss reported. NEUROLOGICAL: Denies headache, amaurosis fugax, motor weakness, sensory defi cit, vertigo/spinning sensation, gait abnormalities, or tremors. ENT: No hearing loss, otalgia, otorrhea, rhinitis, rhinorrhea, hoarseness, or sore throat. CARDIOVASCULAR: Denies any exertional angina, dyspnea on exertion, orthopnea, paroxysmal nocturnal dyspnea, palpitations, life-threatening arrhythmias, claudication. PULMONARY: Denies any shortness of breath, cough, phlegm/sputum, hemoptysis, pleuritic chest pain. SLEEP: Denies morning headaches, daytime somnolence or napping. Denies difficulty falling asleep, staying asleep, waking from sleep. Denies knowledge of snoring. GASTROINTESTINAL: Denies any type of dysphagia to either liquids or solids. Denies nausea, vomiting, pyrosis, early satiety, abdominal pain, diarrhea, constipation, or changes in stool consistency or caliber. Denies coffee-ground emesis, hematemesis, hematochezia, or melanotic stools. GENITOURINARY: Denies frequency, urgency, nocturia, hematuria or incontinence (Storage/Irritative symptoms.) Low urinary stream, straining to void, urinary intermittency or hesitancy, splitting of the voiding stream, terminal dribbling. ENDOCRINOLOGIC: Denies polyuria, polydipsia, polyphagia or heat/cold intolerances. HEMATOLOGIC: Denies thrombophilia/previous clots, or coagulopathy/bleeding disorders. ONCOLOGIC: Denies personal history of malignancy. DERMATOLOGIC: Denies rashes or pruritus. PSYCHIATRIC: Denies any suicidal or homicidal ideation. Denies hallucinations. PHYSICAL EXAM GENERAL APPEARANCE: The patient is awake, alert, and oriented, in no acute cardiopulmonary distress. NEUROLOGICAL: Cranial nerves II-XII grossly intact. Motor is 5/5 in bilateral upper and lower extremities proximal to distal. No sensory deficits. HEENT: Face is symmetric. Pupils are equal and reactive. Extraocular movements are intact. NECK: Supple. No JVD. No thyromegaly. No submental, submandibular, pre- /postauricular, occipital or supraclavicular lymphadenopathy. CHEST: Normal chest expansion. No Telemetry. LUNGS: Absence of any rales, rhonchi or any wheezing. CARDIOVASCULAR: Regular. S1 and S2 normal. No appreciable rubs, murmurs or gallops. ABDOMEN: Soft, nontender, and nondistended. There is no rebound, voluntary guarding, or rigidity. : Deferred. No Munoz. EXTREMITIES: Non-edematous and not cyanotic. No clubbing. Good capillary refill. SKIN: No skin breakdown. Vital Signs (last 8hr) Date Time Temp Pulse Resp B/P (MAP) Pulse Ox O2 Delivery O2 Flow Rate FiO2 11/10/24 08:00 97.7 91 22 155/97 95 Room Air 11/10/24 04:00 98.2 75 22 156/104 90 Room Air LABS: Laboratory: Test 11/10/24 06:17 11/09/24 07:08 11/09/24 07:00 11/08/24 17:00 Range/Units White Blood Count 9.5 4.8-10.8 K/uL Red Blood Count 4.07 L 4.50-6.20 MIL/uL Hemoglobin 10.5 L 14.0-18.0 g/dL Hematocrit 33.6 L 42-54 % Mean Corpuscular Volume 82.6 79-99 fL Mean Corpuscular Hemoglobin 25.8 L 27.0-33.0 pg Mean Corpuscular Hemoglobin Concent 31.3 L 32.0-36.0 g/dL Red Cell Distribution Width 15.2 11.0-15.5 % Platelet Count 336 130-400 K/uL Mean Platelet Volume 9.9 7.5-10.5 fL Immature Granulocyte % (Auto) 1.3 H 0-1 % Neutrophils (%) (Auto) 70.7 40.0-77.0 % Lymphocytes (%) (Auto) 18.5 L 21.0-51.0 % Monocytes (%) (Auto) 5.3 3.0-13.0 % Eosinophils (%) (Auto) 3.6 0.0-8.0 % Basophils (%) (Auto) 0.6 0.0-5.0 % Neutrophils # (Auto) 6.7 1.8-7.7 K/uL Lymphocytes # (Auto) 1.8 1.0-4.8 K/uL Monocytes # (Auto) 0.5 0.1-1.0 K/uL Eosinophils # (Auto) 0.34 0.00-0.70 K/uL Basophils # (Auto) 0.06 0.00-0.20 K/uL Absolute Immature Granulocyte (auto 0.12 0-1 K/uL Nucleated Red Blood Cells 0.0 0.0-0.19 % Sodium Level 144 136-145 mmol/L Potassium Level 2.9 *L 3.5-5.1 mmol/L Chloride Level 104 101-111 mmol/L Carbon Dioxide Level 30 21-32 mmol/L Blood Urea Nitrogen 14 7-18 mg/dL Creatinine 1.5 H 0.5-1.3 mg/dL Glomerular Filtration Rate Calc 63 >90 mL/min Random Glucose 127 H 70-105 mg/dL Total Calcium 9.0 8.5-10.1 mg/dL Prothrombin Time 11.7 H 9.6-11.6 SEC Prothromb Time International Ratio 1.05 0.85-1.15 Activated Partial Thromboplast Time 31.9 26.3-35.5 SEC Phosphorus Level 4.0 2.5-4.9 mg/dL Magnesium Level 1.90 1.80-2.40 mg/dL B-Type Natriuretic Peptide 22 0-100 pg/mL Urine Color YELLOW YELLOW Urine Appearance CLEAR CLEAR Urine pH 6.5 5.0-8.0 Urine Specific [place] 1.035 H 1.001-1.031 Urine Protein 300 H NEGATIVE mg/dL Urine Glucose (UA) NEGATIVE NEGATIVE mg/dL Urine Ketones NEGATIVE NEGATIVE mg/dL Urine Occult Blood LARGE H NEGATIVE Urine Nitrate NEGATIVE NEGATIVE Urine Bilirubin NEGATIVE NEGATIVE mg/dL Urine Urobilinogen 0.2 0.2-1.0 mg/dL Urine Leukocyte Esterase NEGATIVE NEGATIVE Andrey/uL Urine RBC 26-50 H 0-1 /HPF Urine WBC 11-25 H 0-1 /HPF Urine Squamous Epithelial Cells RARE 0-2 /HPF Urine Bacteria RARE None Seen /HPF Urine Hyaline Casts 2-5 H 0-1 /LPF /LPF Urine Osmolality 529 50-1200 mOsm/kg Urine Random Creatinine 251.26 H 30-135 mg/dL Urine Random Sodium 33 L 40-220 mmol/l Test 11/08/24 15:00 Range/Units Total Creatine Kinase 123 21-232 U/L Troponin I High Sensitivity 32 4-75 ng/L Current Medications Medications (Trade) Dose Ordered Sig/Angie Route PRN Reason Start Time Stop Time Status Last Admin Dose Admin Acetaminophen (TYLenol 650MG SUPPOSITORY) 650 mg Q6H PRN RC MILD PAIN (1-3) 11/08/24 18:30 12/08/24 18:29 Amlodipine Besylate (NorvASC 5MG TAB) 5 mg DAILY PO 11/10/24 09:00 12/10/24 08:59 Hydralazine HCl (APRESOLine 20MG INJ) 10 mg Q6H IV 11/09/24 17:12 12/09/24 17:11 11/10/24 04:09 10 MG Hydralazine HCl (APRESOLine 20MG INJ) 10 mg Q6H PRN IV For:SBP above 160;DBP above 90 11/08/24 18:30 11/09/24 13:58 DC 11/09/24 06:46 10 MG Labetalol HCl 250 mg/Sodium Chloride 250 ml @ 0 mls/hr PROTOCOL IV 11/09/24 08:30 11/09/24 08:45 DC Lactated Ringer's 1,000 ml @ 75 mls/hr [id number] IV 11/08/24 18:30 12/08/24 18:29 11/09/24 20:23 75 MLS/HR Morphine Sulfate (morPHINE 4MG SYG) 4 mg Q4H PRN IVP SEVERE PAIN (7-10) 11/08/24 18:30 11/15/24 18:29 Ondansetron HCl (zoFRAN 4MG INJ) 4 mg Q6H PRN IV NAUSEA/VOMITING 11/08/24 18:30 12/08/24 18:29 Pantoprazole Sodium (PROTonix 40MG INJ) 40 mg DAILY IVP 11/09/24 09:00 12/09/24 08:59 11/09/24 08:26 40 MG Potassium Chloride 100 ml @ 50 mls/hr AD PRN IV POTASSIUM PROTOCOL 11/09/24 08:30 12/09/24 08:29 11/09/24 08:27 50 MLS/HR DIAGNOSTICS / RADIOLOGY: PATIENT: SHERIF LAZO JR MR#: [id number] : 1990 SEX: M AGE: 34 LOCATION: [facility] ORDER 1310 STATUS: ADM IN [facility] REPORT#: [id number] SERVICE 1307 REASON: HYPERTENSIVE URGENCY ORDERING PHYSICIAN: QUANG TINSLEY MD PROCEDURE: RENAL - US RENAL SONOGRAM Exam Type: US RENAL SONOGRAM Clinical Information: HYPERTENSIVE URGENCY Comparison: None Findings: There is moderate to severe hydronephrosis of the left kidney. There is also evidence of hydroureter. Right kidney measures 14.4 x 5.7 cm. The left kidney measures 13.7 x 5.3 cm. There is a right renal upper interpolar simple cyst measuring 2.3 cm. The kidneys are otherwise unremarkable. IMPRESSION: Left-sided hydronephrosis. DICTATED BY: ISAIAS BRUNER MD DATE: 11/09/241425 ELECTRONICALLY SIGNED BY: ISAIAS BRUNER MD DATE: 11/09/241428 ASSESSMENT: Left inguinal hernia causing hydroureteronephrosis, POA Acute kidney injury, POA Hypokalemia, POA PLAN: Patient will be followed by General surgery Service, Dr. Nielsen and Urology Dr. Elliott IV fluid maintenance therapy lactated Ringer's at 75 mL/HR Full liquid diet Check preprocedure labs, CBC, BMP, magnesium, phosphorus, PTT, UA, type and screen, EKG, CXR As needed analgesia with morphine Consider consulting Urology Service if recommended by General surgery Service Calculate FENA Check urine sodium, creatinine, osmolality Avoid nephrotoxic agents when possible Renally dose all medications when possible Consider consulting Nephrology service if any worsening renal function or evidence of ATN. Monitor patient's labs. Weight patient daily. Monitor intake and output. Patient received potassium replacement 25 mEq in the emergency department. Replace potassium conservatively given current acute kidney injury. GI prophylaxis, Protonix DVT prophylaxis, Artemio's and SCDs. Avoid anticoagulation at this time due to impending general surgery evaluation. ATTESTATION BY PHYSICIAN I have seen and examined the patient. I reviewed the documentation, medical decision making, and treatment plan as noted by the resident provider above. I agree with the findings and plan of care. Nikolas Webb MD,QUANG SANDHU Nov 10, 2024 09:28
[2024-11-10] MEDS: amLODIPine 5 MG TAB PO SCH (09:50)
[2024-11-10 11:54] VITALS: BP 158/106; PULSE 98; RESP 19; TEMP 97.9
[2024-11-10] MEDS ORDERED: PoTASSium chloRIDE 20MEQ ER 20 MEQ ERTAB PO ONE (12:00)
--- NOTE | 2024-11-10 14:01 | HMCSR ---
APPROVED REPORT EXAM: Two-dimensional and M-mode echocardiogram with Doppler and color Doppler. INDICATION ICD: Shortness of breath R06.02 hypertensive urgency 2D Dimensions RVDd4.4 cmLVEF(%)59.0 (>50%)LVED Vol(simp.)149.0 mL IVSd1.7 (0.7-1.1cm)FS(%)31 %LVES Vol(simp.)54.7 mL LVDd5.1 (3.8-5.6cm)LA (2D)5.4 (1.6-4.0cm)LVEF(%, simp.)63 % PWd1.5 (0.7-1.1cm)Ao Root(2D)3.9 (2.0-3.7cm)LA ESV INDEX (4CH)19.40 mL/m2 IVSs2.2 cmLVOT diam2.5 (1.8-2.4cm)LA ESV INDEX (2CH)27.40 mL/m2 LVDs3.5 (2.5-4.0cm)LA ESV INDEX (BP)26.50 mL/m2 PWs2.3 cm Deformation Strain Apical 417.0 % Apical 220.0 % Apical 321.0 % Global Ypavre15.0 % M-Mode Dimensions EPSS0.8 cm LA (MM)5.6 (1.6-4.0cm) Ao Root(MM)4.1 (2.0-3.7cm) Aortic Valve AoV VTI0.3 mAo Mean GR7.0 mmHgLVOT VTI0.18 m YVONNE (VMAX)2.9 cm2AVA (VTI) 2.9 cm2 Mitral Valve MV E Vmax62.1 cm/sDECEL Rhpb678 ms MV A Vmax90.7 cm/sP 1/2 T42 ms E/A ratio0.7MVA (PHT)5.3 cm2 TDI E/E' Medial8.4E/E' Emdpklq51.2 Medial E' Peak V7.40 cm/sLateral E' Peak V6.10 cm/s Pulmonary Valve PV Vmax1.5 m/s PV Peak GR8.9 mmHg Tricuspid Valve RAP (EST) 8 mmHgRVSP8.0 mmHg Left Ventricle Left ventricular cavity size is normal. GLS -19% No regional wall motion abnormalities noted. Moderat e eccentric left ventricular hypertrophy. LVEF is 60-65%. Stage I diastolic dysfunction. Right Ventricle The right ventricle is mildly dilated. The right ventricular systolic function is normal. Atria The left atrium size is normal. The right atrium is moderately dilated. Aortic Valve The aortic valve is normal in structure and function. Trivial aortic regurgitation is present. There is no aortic valvular stenosis. Mitral Valve The mitral valve is normal in structure and function. There is no mitral valve regurgitation noted. T here is no mitral valve stenosis. Tricuspid Valve The tricuspid valve is normal in structure and function. There is no tricuspid valve regurgitation no angus. Pulmonic Valve Pulmonic valve is not well visualized. There is no pulmonic valvular regurgitation. Great Vessels The aortic root is normal in size. The IVC is normal in size and collapses <50% with inspiration. Pericardium No pericardial effusion. Other Information Quality : Fair Conclusion Moderate eccentric left ventricular hypertrophy. LVEF is 60-65%. Stage I diastolic dysfunction. GLS -19% No regional wall motion abnormalities noted.
--- NOTE | 2024-11-10 16:55 | PN ---
This is a 34-year-old male with concerns of large left inguinal hernia Interval history: This 34-year-old male seen in his room resting Patient tolerating diet at this time and passing gas No concerns for obstruction at this time Patient is he has been consulted to urology for evaluation of ureter component within hernia Patient otherwise stable Physical exam General: Awake alert and oriented Heart: Regular rate and rhythm} Lungs: [Clear to auscultation no distress Abdomen: [Continued left inguinal hernia Assessment : This is a 34-year-old male with a large left inguinal hernia Plan: Patient to continue with diet Await for urology evaluation and potential recommendations Dr. Nielsen to be updated in patient's status Surgical team to follow patient closely nursing report any further acute events Vitals/Labs Vital Signs Date Time Temp Pulse Resp B/P (MAP) Pulse Ox O2 Delivery O2 Flow Rate FiO2 11/10/24 11:54 97.9 98 19 158/106 95 Room Air 11/09/24 20:16 0 21 Laboratory Tests 11/10/24 06:17 Medications Current Medications Labetalol HCl 10 mg ONCE ONCE IV Last administered on 11/08/24at 17:45; Start 11/08/24 at 14:30; Stop 11/08/24 at 14:31; Status DC Iohexol 35,000 mg STK-MED ONCE IV; Start 11/08/24 at 16:25; Stop 11/08/24 at 16:26; Status DC Potassium Bicarbonate 25 meq ONCE ONCE PO Last administered on 11/08/24at 17:43; Start 11/08/24 at 16:30; Stop 11/08/24 at 16:31; Status DC Sodium Chloride 1,000 ml @ 0 mls/hr ONCE ONCE IV Last administered on 11/08/24at 17:43; Start 11/08/24 at 16:30; Stop 11/08/24 at 16:31; Status DC Lactated Ringer's 1,000 ml @ 75 mls/hr [id number] IV Last administered on 11/10/24at 09:51; Start 11/08/24 at 18:30; Stop 12/08/24 at 18:29 Acetaminophen 650 mg Q6H PRN RC; Start 11/08/24 at 18:30; Stop 12/08/24 at 18:29 Ondansetron HCl 4 mg Q6H PRN IV; Start 11/08/24 at 18:30; Stop 12/08/24 at 18:29 Morphine Sulfate 4 mg Q4H PRN IVP; Start 11/08/24 at 18:30; Stop 11/15/24 at 18:29 Hydralazine HCl 10 mg Q6H PRN IV Last administered on 11/09/24at 06:46; Start 11/08/24 at 18:30; Stop 11/09/24 at 13:58; Status DC Pantoprazole Sodium 40 mg DAILY IVP Last administered on 11/10/24at 09:50; Start 11/09/24 at 09:00; Stop 12/09/24 at 08:59 Nitroglycerin 0.5 inch ONCE ONCE TD Last administered on 11/09/24at 01:08; Start 11/09/24 at 01:30; Stop 11/09/24 at 01:31; Status DC Nitroglycerin 1 inch STK-MED ONCE TD; Start 11/09/24 at 01:06; Stop 11/09/24 at 01:12; Status DC Potassium Chloride 100 ml @ 50 mls/hr AD PRN IV Last administered on 11/09/24at 08:27; Start 11/09/24 at 08:30; Stop 12/09/24 at 08:29 Labetalol HCl 250 mg/Sodium Chloride 250 ml @ 0 mls/hr PROTOCOL IV; Start 11/09/24 at 08:30; Stop 11/09/24 at 08:45; Status DC Labetalol HCl 10 mg ONCE ONCE IV Last administered on 11/09/24at 08:53; Start 11/09/24 at 09:00; Stop 11/09/24 at 09:01; Status DC Hydralazine HCl 10 mg Q6H IV Last administered on 11/10/24at 11:57; Start 11/09/24 at 17:12; Stop 12/09/24 at 17:11 Amlodipine Besylate 5 mg DAILY PO Last administered on 11/10/24at 09:50; Start 11/10/24 at 09:00; Stop 12/10/24 at 08:59 Potassium Chloride 40 meq ONCE ONCE PO; Start 11/10/24 at 12:00; Stop 11/10/24 at 12:01; Status DC CECILIA HARRIS Jr. Nov 10, 2024 16:54
--- NOTE | 2024-11-10 17:30 | NUR ---
BRYANNA PER PATIENT, HE WILL SEE A UROLOGIST OUT PATIENT. PATIENT DID NOT WANT TO WAIT TO SEE UROLOGY HERE. CINDY SANCHEZ SUP AND DR. TINSLEY NOTIFIED. IV AND ID BANDS REMOVED.
== END 2024-11-10 17:00 | disposition left against medical advice (07) | DRG 394 ==
LOC: EDH 13:35 → EDHIP 13:36 → 3CH 23:28 → EDHIP 11-09 01:53 → 3DH 11-09 11:35
PROVIDERS: ADMIT Internal Medicine; ATTEND Internal Medicine
DX: K40.90 Unilateral inguinal hernia, without obstruction or gangrene, not specified as recurrent (principal); N13.30 Unspecified hydronephrosis; N17.9 Acute kidney failure, unspecified; Z68.44 Body mass index [BMI] 60.0-69.9, adult; E87.6 Hypokalemia; E66.01 Morbid (severe) obesity due to excess calories; G47.33 Obstructive sleep apnea (adult) (pediatric); I10 Essential (primary) hypertension; Z53.29 Procedure and treatment not carried out because of patient's decision for other reasons; Z59.71 Insufficient health insurance coverage; Z75.3 Unavailability and inaccessibility of health-care facilities; Z91.199 Patient's noncompliance with other medical treatment and regimen due to unspecified reason; Z79.899 Other long term (current) drug therapy
CPT/HCPCS: 36415; 71045; 74177; 76770; 80048; 81001; 82550; 82570; 83735; 83880; 83935; 84100; 84300; 84484; 85025; 85610; 85730; 86850; 86900; 86901; 87086; 93005; 93306; 93356; G0378; J0360; J2470; J3480; J3490; J7030; J7050; J7120; Q9967